=== PATIENT | male | born 1970 | race Caucasian/White ===

== ENCOUNTER 2018-04-06 07:40 | Day surgery (SDC) | payer BC, OTHER ==
[~2018-04-06 07:40] MED LIST: PROPOFOL INJ 200 MG/20 ML VIAL IV ONE
[2018-04-06 09:26] VITALS: BP 103/59
--- NOTE | 2018-04-06 10:56 | Operative Report ---
Operative Report DATE OF SURGERY: 04/06/18 Operative Report: The risks benefits and alternatives of the procedure explained to the patient in detail and informed consent is obtained.A GIF Olympus video scope was inserted into the patient's mouth and hypopharynx, the esophagus is identified intubated and insufflated, the scope was then advanced through the esophagus stomach and duodenum ,retroflexion maneuver is done ,the esophagus stomach and first and second portions of the duodenum examined PREOPERATIVE DIAGNOSIS: Dysphagia POSTOPERATIVE DIAGNOSIS: Distal esophageal ulceration. Esophagitis status post biopsy rule out Power's. Gastritis status post biopsy. Duodenitis OPERATION: EGD with biopsy SURGEON: JULIEN PIZARRO ANESTHESIA: LMAC TISSUE REMOVED OR ALTERED: As noted above. COMPLICATIONS: None. ESTIMATED BLOOD LOSS: None. INTRAOPERATIVE FINDINGS: As noted above. PROCEDURE: Patient tolerated the procedure well. No immediate postprocedure complications are noted. Patient discharged in good condition. Discharge date 04/06/2018. Discharge diet: Regular. Discharge activity: Regular. 2-3 week follow-up to discuss findings. Patient is instructed call the office or proceed to the emergency room should there be any further problems or questions. Follow-up EGD in 6-8 weeks. We will wait on the pathology.
== END 2018-04-06 09:17 | disposition home or self-care (01) ==
LOC: END 07:40
PROVIDERS: ATTEND Internal Medicine Gastroenterology
DX: K29.50 Unspecified chronic gastritis without bleeding (principal); K29.80 Duodenitis without bleeding; K22.10 Ulcer of esophagus without bleeding; J45.909 Unspecified asthma, uncomplicated; Z88.6 Allergy status to analgesic agent; Z79.51 Long term (current) use of inhaled steroids
CPT/HCPCS: 43239; 88305 ×2; J2704; 731

== ENCOUNTER → 2018-08-10 | Outpatient (CLI) | payer OTHER | LOC: OD 13:42 | PROVIDERS: ATTEND Otolaryngology | DX: J30.9 Allergic rhinitis, unspecified (principal) | CPT/HCPCS: 36415; 82785; 86003 ==